=== PATIENT | female | born 1990 | race Caucasian/White ===

== ENCOUNTER 2018-07-02 15:58 | Outpatient (REF) | payer BC, SELFPAY ==
[2018-07-02 20:36] LABS: Bilirubin Negative (Negative); Blood Trace-intact (Negative); Clarity Sl Cloudy; Glucose Negative (Negative); Ketones Negative (Negative); Leukocyte Esterase Negative (Negative); Nitrite Negative (Negative); Specific Gravity >= 1.030 (1.005-1.025); Urobilinogen 0.2 EU/dL (Up TO 0.2)
[2018-07-02 20:50] LABS: Bacteria Many HPF (Negative); C & S Indicated? No/Sq. Contamination; Casts Negative LPF (Negative); Crystals Negative HPF (Negative); Epithelial Cells Many HPF (Negative); Mucus Negative (Negative); RBC 0-2 (0-2); WBC 0-2 HPF (0-5)
[2018-07-05 12:08] LABS: HIV-1/2 Ag & Ab Screen Negative (NEGAT)
[2018-07-05 14:10] LABS: Syphilis Serology (RPR) Negative (Negative)
== END 2018-07-02 16:18 ==
LOC: NCHCN 15:58
PROVIDERS: PCP Nurse Practitioner; Visit Provider Nurse Practitioner
DX: R30.0 Dysuria (principal); Z72.51 High risk heterosexual behavior; Z11.4 Encounter for screening for human immunodeficiency virus [HIV]; Z11.3 Encounter for screening for infections with a predominantly sexual mode of transmission
CPT/HCPCS: 87389; 81003; 81015; 86592

== ENCOUNTER 2019-11-10 18:00 | Outpatient (REF) | payer BC, SELFPAY ==
[2019-11-14 14:37] LABS: Chlamydia Result Negative (Negative); GC Result Negative (Negative)
== END 2019-11-10 18:20 ==
LOC: NCHCN 18:00
PROVIDERS: PCP Nurse Practitioner; Visit Provider Nurse Practitioner Family
DX: Z11.3 Encounter for screening for infections with a predominantly sexual mode of transmission (principal)
CPT/HCPCS: 87491; 87591

== ENCOUNTER 2019-12-08 09:50 | Outpatient (CLI) | payer BC, SELFPAY | END 2019-12-08 10:10 | PROVIDERS: PCP Nurse Practitioner; Visit Provider Surgery | DX: Z01.818 Encounter for other preprocedural examination (principal) ==

== ENCOUNTER 2019-12-09 09:37 | Day surgery (SDC) | payer BC, SELFPAY ==
[2019-12-09] VITALS (8 sets, daily range): BP systolic 108–166; BP diastolic 65–96; PULSE 74–88; RESP 16–28; TEMP 36.4–36.7; O2SAT 92–100
[2019-12-09] MEDS: Lactated Ringers 1,000 ML 80 ML IV ×2 (10:25→12:16)
--- NOTE | 2019-12-09 10:29 | W.PM.DSUDISC ---
Discharge Plan Disposition Patient Disposition: HOME Condition: Good Discharge Details Reason For Visit: EGD, Colonoscopy Attending Provider: Katy Ramirez Primary Care Provider: Ailyn Shane Home Meds and New Rx's Prescriptions: Continued dextroamphetamine-amphetamine [Adderall XR] 30 mg capsule,extended release 24hr 30 mg PO DAILY RF: 0 venlafaxine 37.5 mg capsule,extended release 24hr 37.5 mg PO HS RF: 0 acetaminophen [Tylenol Extra Strength] 500 mg tablet 500 mg PO Q6H PRNRF: 0 naproxen sodium [Aleve] 220 mg capsule 660 mg PO BID PRNRF: 0 ibuprofen 200 mg tablet 800 mg PO Q6H PRNRF: 0 etonogestrel-ethinyl estradiol [NuvaRing] 0.12-0.015 mg/24 hr ring 1 vag ring VG Q4W Qty: 3 RF: 0 loperamide [Imodium A-D] 2 mg capsule 2 mg PO Q4H RF: 0 pantoprazole 40 mg tablet,delayed release (DR/EC) 80 mg PO DAILY RF: 0 ondansetron 4 MG tablet,disintegrating 4 mg PO PRN PRNRF: 0 Discharge Instructions Additional Instructions: Findings: Your EGD showed mild gastritis. Routine biopsies were done. My office will contact you with results. Avoid NSAIDS if possible and alcohol. Your colonoscopy appeared normal. Random biopsies were done to rule out microscopic colitis. Follow up: Further treatment will be based on biopsy results. Please call if you develop: fevers >101.5 Nausea or Vomiting Abdominal pain that is not transient DAY SURGERY UNIT POST COLONOSCOPY INSTRUCTIONS 1. Because there will be medication in your system for the next 24 hours, you may feel a little sleepy. Your coordination will be affected. Therefore: a. Do not drive or operate dangerous equipment for 24 hours. b. Do not drink alcohol beverages for 24 hours (not even beer). c. Plan to go home and rest for the day. 2. Generally there are no restrictions on your activity after a day or so has gone by, but you may feel a bit fatigued for a few days. 3 After you arrive home you may have a light meal and return to a normal diet as you can tolerate it without feeling sick to your stomach. 4. After surgery, you may feel pain or discomfort. This should be only transient, but if it persists please contact your doctor. 5. If there are any questions regarding the findings of your procedure, please feel free to contact your doctor. 6. If you are unable to contact your doctor with a problem, contact the hospital at [phone]. 7. Continue all your regular medications unless directed otherwise. I understand the above instructions and have no questions. Signature of Patient or Responsible Adult Escort Date/Time Name of Responsible Adult Escort Signature of Nurse Date/Time Activity:: Activity as Tolerated Diet:: As Tolerated Discharge Orders Discharge Orders: Discharge Order (Routine); Ordered 12/09/19 Ordered By: Katy Ramirez DS: Diagnosis Discharge Diagnosis (1) Gastritis: Status: Acute (2) Normal colonoscopy: Status: Acute
--- NOTE | 2019-12-09 11:31 | BOWEL_PTH ---
PATIENT: Maggy Castillo LOC: [facility] U#:[id number] AGE/SX: 29/F ROOM: RE12/09/[address]: Katy Ramirez MD : 1990 BED: DIS: 12/09/2019 SPEC #: [id number] RECD: 12/09/19 12:56 STATUS: ROBBY REQ #: [id number] KAILASH: 12/09/19 11:[address]: Katy Ramirez DEPT: Surgical Specimen RECD BY: Lizeth Whelan ENTERED: 12/09/19 12:57 SP TYPE: Bowel OTHR DR: Ailyn Shane Tissues: 1 - BIOPSY BOWEL 2 - STOMACH BIOPSY 3 - BIOPSY BOWEL Procedures: GROSS AND MICRO LEVEL 4 Comments: [id number]
--- NOTE | 2019-12-09 13:10 | ENDO_ITS ---
REPORT OF OPERATIVE PROCEDURE DATE OF PROCEDURE December 09, 2019 PREOPERATIVE DIAGNOSES 1. Blood in stool. 2. Right upper quadrant pain. 3. History of gastric ulcer. POSTOPERATIVE DIAGNOSES 1. Mild gastritis. 2. Normal colon. PROCEDURES 1. EGD with duodenal and gastric biopsies. 2. Colonoscopy with random biopsies. SURGEON Katy Ramirez M.D. ANESTHESIA General endotracheal. INDICATIONS This is a 29-year-old woman who had an episode of fairly dark blood in her stool. She also had some g eneralized abdominal pain that on the day of admission was more in the right upper quadrant. The neisha ent had an EGD in 2018 that showed gastritis along with a shallow gastric ulcer. She has recently bee n taking prednisone for carpal tunnel syndrome and also takes Aleve several times a week for headache s. She complains of chronic loose stools and take Imodium as needed. Recent hemoglobin was 13.5. The re is no family history of colon cancer or inflammatory bowel disease. PROCEDURE DESCRIPTION The patient was placed supine on the operating table and after induction of general anesthetic, inclu ding endotracheal intubation, she as carefully positioned onto her left side. The scope was advanced into her esophagus under direct visualization and down into the stomach and duodenum. There was no du odenitis or ulcers noted. Biopsies were taken from the second portion to evaluate for celiac disease. The stomach itself showed some mild gastritis. Biopsies were taken from the gastric body. Retroflexe d view of the fundus and lesser curvature showed no other abnormalities. The GE junction showed no ma sses, James's, inflammation or strictures. The air was suctioned from the stomach and the scope wi thdrawn with no other esophageal lesions found. Digital rectal examination revealed no abnormalities. The scope was advanced to the cecum without dif ficulty. The ileocecal valve and appendiceal orifice were clearly identified. Her prep was adequate. The scope was slowly withdrawn with no visible abnormalities seen within the ascending, transverse, descending, sigmoid colon or rectum including on retroflexed view. Random biopsies were performed thr oughout the colon to evaluate for possible microscopic colitis. She tolerated the procedure well and was stable to Recovery. Further treatment will be based on biopsy results. My office will contact her when available.
== END 2019-12-09 14:15 | disposition home or self-care (01) ==
PROVIDERS: PCP Family Medicine; Visit Provider Surgery
PROC: (CPT 45380; principal; 2019-12-09 10:15)
DX: K92.1 Melena (principal); R10.11 Right upper quadrant pain; Z87.19 Personal history of other diseases of the digestive system; K31.89 Other diseases of stomach and duodenum; K21.9 Gastro-esophageal reflux disease without esophagitis; G47.33 Obstructive sleep apnea (adult) (pediatric)
CPT/HCPCS: 45380; 43239; 88305; J2001; J2405; J2704

== ENCOUNTER 2020-02-17 09:04 | Outpatient (CLI) | payer BC, SELFPAY ==
[2020-02-20 15:11] LABS: COVID-19 RT-PCR UVMMC Result Negative (Negative)
== END 2020-02-17 09:24 ==
PROVIDERS: PCP Family Medicine; Visit Provider Nurse Practitioner Family
DX: Z11.59 Encounter for screening for other viral diseases (principal)
CPT/HCPCS: U0003

== ENCOUNTER 2020-03-22 13:08 | Outpatient (REF) | payer BC, SELFPAY ==
[2020-03-22 18:15] LABS: Abs Immature Grans 0.01 k/cumm (0.0-0.09); Absolute Basophil Count 0.01 k/cumm (0.0-0.2); Absolute Eosinophil Count 0.08 k/cumm (0.0-0.7); Absolute Lymphocyte Count 3.07 k/cumm (1.2-3.4); Absolute Monocyte Count 0.52 k/cumm (0.11-0.7); Absolute Neutrophil Count 4.05 k/cumm (1.2-6.7); Basophils % 0.1; HCT 39.9 % (36.0-46.0); HGB 13.6 g/dL (12.0-15.5); Immature Grans % 0.1 %; Lymphocytes % 39.7; Mean Corp. HGB Concentration 34.1 g/dL (32.0-36.0); Mean Corpuscular Hemoglobin 29.4 pg (27.0-33.0); Mean Corpuscular Volume 86.4 fL (80-95); Mean Platelet Volume 9.6 fL (8.0-11.0); Monocytes % 6.7; Neutrophils % 52.4; Platelet Count 303 x1000/uL (130-400); RBC 4.62 m/cumm (4.00-5.20); RBC Distribution Width 12.4 % (11.7-14.6); White Blood Cell Count 7.74 k/cumm (4.4-10.8)
[2020-03-22 18:21] LABS: Bilirubin Negative (Negative); Blood Negative (Negative); Clarity Clear (Clear); Glucose Negative (Negative); Ketones Negative (Negative); Leukocyte Esterase Negative (Negative); Nitrite Negative (Negative); Specific Gravity >= 1.030 (1.005-1.025); Urobilinogen 0.2 EU/dL (Up TO 0.2)
[2020-03-22 19:00] LABS: Bacteria Many HPF (Negative); C & S Indicated? No/Sq. Contamination; Casts Negative LPF (Negative); Crystals Many Amorphous HPF (Negative); Epithelial Cells Many HPF (Negative); Mucus Moderate (Negative); Other Cells Negative (Negative); RBC 0-2 HPF (0-2); WBC 0-2 HPF (0-5)
[2020-03-23 10:56] LABS: COVID-19 RT-PCR UVMMC Result Negative (Negative)
== END 2020-03-22 13:28 ==
LOC: NCHCN 13:08
PROVIDERS: PCP Family Medicine; Visit Provider Nurse Practitioner Family
DX: R50.9 Fever, unspecified (principal); R11.0 Nausea; Z11.59 Encounter for screening for other viral diseases
CPT/HCPCS: U0003; 81003; 81015; 85025

== ENCOUNTER 2020-03-23 13:06 | Outpatient (REF) | payer BC, SELFPAY ==
[2020-03-23 17:04] LABS: ALT 24 U/L (14-59); AST 19 U/L (15-37); Albumin 3.5 g/dL (3.4-5.0); Alkaline Phosphatase 52 U/L (46-116); Anion Gap 10.7 mmol/L (3-11); BUN 9 mg/dL (7-18); Bilirubin, Total 0.3 mg/dL (0.2-1.0); CO2 25.3 mmol/L (21.0-32.0); CREATININE 0.95 mg/dL (0.55-1.02); Chloride 101 mmol/L (98-107); Glucose 97 mg/dL (74-106); Potassium 4.5 mmol/L (3.5-5.1); Sodium 137 mmol/L (136-145); Total Protein 6.9 g/dL (6.4-8.2)
== END 2020-03-23 13:26 ==
LOC: NCHCN 13:06
PROVIDERS: PCP Family Medicine; Visit Provider Nurse Practitioner Family
DX: R50.9 Fever, unspecified (principal); R11.0 Nausea
CPT/HCPCS: 80053; 84443

== ENCOUNTER 2020-04-04 17:31 | Outpatient (REF) | payer BC, SELFPAY ==
--- NOTE | 2020-04-04 16:30 | PAPFT_PTH ---
PATIENT: Maggy Castillo LOC: [facility] U#:[id number] AGE/SX: 30/F ROOM: RE04/04/[address]: Callie Tan : 1990 BED: DIS: 04/04/2020 SPEC #: [id number] RECD: 04/04/20 17:35 STATUS: ROBBY REQ #: [id number] KAILASH: 04/04/20 16:[address]: Callie Tan DEPT: [facility] Cytology RECD BY: Lizeth Whelan ENTERED: 04/04/20 17:36 SP TYPE: PAPFT OTHR DR: Ailyn Shane Tissues: 1 - CX/ENDOCX FOR PAP SMEARS Procedures: PAP THIN PREP/UVM Screening Comments: [id number]
[2020-04-06 13:55] LABS: Chlamydia Result Negative (Negative); GC Result Negative (Negative)
== END 2020-04-04 17:51 ==
LOC: LBN 17:31
PROVIDERS: PCP Family Medicine; Visit Provider Obstetrics & Gynecology Gynecology
DX: Z11.3 Encounter for screening for infections with a predominantly sexual mode of transmission (principal); Z12.4 Encounter for screening for malignant neoplasm of cervix
CPT/HCPCS: 87491; 87591; 88142

== ENCOUNTER 2020-06-29 14:14 | Outpatient (CLI) | payer BC, SELFPAY ==
[2020-06-29 15:00] LABS: HCT 41.4 % (36.0-46.0); HGB 13.5 g/dL (11.2-15.7); MCH 28.2 pg (27.0-33.0); MCHC 32.6 % (32.0-36.0); MCV 86.6 fL (80-95); MPV 9.5 fL (8.0-11.0); Platelet Count 293 10^3/uL (130-400); RBC 4.78 10^6/uL (3.93-5.22); RDW 12.4 % (11.7-14.6); RDW-SD 39.1 fL; WBC 8.44 10^3/uL (4.4-10.8)
[2020-07-04 08:18] LABS: Campylobacter PCR Negative (Negative); Salmonella PCR Negative (Negative); Shiga Toxin PCR Negative (Negative); Shigella/Enteroinvasive Ecoli Negative (Negative)
== END 2020-06-29 14:34 ==
PROVIDERS: PCP Nurse Practitioner Family; Visit Provider Nurse Practitioner Family
DX: R19.7 Diarrhea, unspecified (principal)
CPT/HCPCS: 36415; 85027; 87505; 87177

== ENCOUNTER 2020-06-30 09:53 | Emergency (ER) | payer BC, SELFPAY ==
[2020-06-30 10:01] VITALS: BP 141/93; PULSE 92; RESP 16; TEMP 36.1; O2SAT 97
--- NOTE | 2020-06-30 10:14 | ED.GENADUL_ITS ---
Discharge Plan Disposition Patient Disposition: HOME Condition: Stable Discharge Details Clinical Impression: Diarrhea, Dehydration Primary Care Provider: Malathi Krueger ED Provider: Mina Rodgers Home Meds and New Rx's Prescriptions: New vancomycin 125 mg capsule 125 mg PO QID 10 Days Qty: 40 RF: 0 Continued venlafaxine 37.5 mg capsule,extended release 24hr 37.5 mg PO HS RF: 0 doxepin 10 mg capsule 10 mg PO QHS RF: 0 acetaminophen [Tylenol Extra Strength] 500 mg tablet 500 mg PO Q6H PRNRF: 0 naproxen sodium [Aleve] 220 mg capsule 660 mg PO BID PRNRF: 0 ibuprofen 200 mg tablet 800 mg PO Q6H PRNRF: 0 loperamide [Imodium A-D] 2 mg capsule 2 mg PO Q4H RF: 0 pantoprazole 40 mg tablet,delayed release (DR/EC) 80 mg PO DAILY RF: 0 etonogestrel-ethinyl estradiol [NuvaRing] 0.12-0.015 mg/24 hr ring 1 vag ring VG Q4W Qty: 3 RF: 4 ondansetron 4 MG tablet,disintegrating 4 mg PO PRN PRNRF: 0 Discharge Instructions Instructions: Acute Diarrhea (ED) Additional Instructions: your c diff test came back as indeterminate so a confirmation test was sent out to an outside lab follow up with your primary care provider within 1 week if not improving if you feel more ill, have severe pain or persistent vomit return to the emergency department Stand Alone Forms: Work Release Medical Decision Making 30 yo female comes in with 2 days of watery yellow stools without fevers denies recent antibiotics and denies recent travel. She had stool samples collected by pcp yesterday per patient and are pending at this time. She came in today be cause she feels dehydrated, has nausea and mild frontal headache, no vomit, no abdominal pain, no chest pain or dyspnea. Arrives hd stable, does have dry mucous membranes, no abdominal tenderness on exam. Suspect gastroenteritis vs food related illness. Given lack of any abdominal tenderness doubt surgical pathology such as cholecystitis, sbo or appendicitis and do not feel ct imaging at this time indicated. Will evaluate for electrolyte abnormalities, c diff and reassess after IVF and zofran/toradol. Headache is very mild suspect this is due to dehydration, not the worst of her life and did not start suddenly so doubt sah and no meningimsus so doubt mica miner blasting infection blood work unremarkable and c diff indeterminate, given her symptoms of diarrhea while confirmation testing will start oral vanco. She is stable for d/c, return precautions given Differential Diagnosis Differential Diagnosis: food illness, gastroenteritis Lab Data Lab results reviewed: Yes I reviewed the patient's lab results. HPI General Mode of arrival: ambulatory . Date/Time Provider Initiated Documentation: 06/30/20 09:54 . Limitations to Documentation: no limitations . Information obtained by: patient . History of Present Illness 30 year old F presents to the emergency department with the chief complaint of diarrhea, described as moderate, Patient started experiencing this day(s) (2) and it has been constant. No relieving factors improve symptom(s), No exacerbating factors reported . Related Data Home Medications Medication Instructions Recorded Confirmed ondansetron 4 mg PO PRN PRN 11/28/16 06/30/20 acetaminophen 500 mg tablet 500 mg PO Q6H PRN 10/14/18 06/30/20 venlafaxine 37.5 mg 37.5 mg PO HS 10/26/19 06/30/20 capsule,extended release 24 hr loperamide 2 mg capsule 2 mg PO Q4H 12/07/19 06/30/20 pantoprazole 40 mg tablet,delayed 80 mg PO DAILY tab 12/07/19 06/30/20 release ibuprofen 200 mg tablet 800 mg PO Q6H PRN tab 12/08/19 06/30/20 naproxen sodium 220 mg capsule 660 mg PO BID PRN 12/08/19 06/30/20 etonogestrel 0.12 mg-ethinyl 1 vag ring VG Q4W #3 each 12/30/19 06/30/20 estradiol 0.015 mg/24 hr vaginal ring doxepin 10 mg capsule 10 mg PO QHS 04/04/20 06/30/20 vancomycin 125 mg PO QID 10 Days #40 cap 06/30/20 Previous Rx's Medication Instructions Recorded etonogestrel 0.12 mg-ethinyl 1 vag ring VG Q4W #3 each 12/30/19 estradiol 0.015 mg/24 hr vaginal ring vancomycin 125 mg PO QID 10 Days #40 cap 06/30/20 Allergies Allergy/AdvReac Type Severity Reaction Status Date / Time aripiprazole [From Abilify] AdvReac Intermediate Other (See Verified 06/30/20 10:05 Comment) General Stated Complaint: Nausea/Vomit/Diar NIXON: 3 Review of Systems All systems reviewed & are unremarkable except as noted in HPI and below Constitutional Constitutional: Denies chills and Denies fever(s) Cardiovascular Cardiovascular: Denies chest pain and Denies dyspnea Respiratory Respiratory: Denies cough and Denies dyspnea Gastrointestinal Gastrointestinal: Denies vomiting Musculoskeletal Musculoskeletal: Denies joint swelling [facility] Medical History (Updated 06/30/20 @ 11:43 by Mina Rodgers MD) Abdominal pain ADHD On meds Anxiety Back pain Bloody stool BMI 50.0-59.9, adult BV (bacterial vaginosis) (10/23/17) Change in bowel habits Depression Not responsive to medications. Had a series of IV infusions of ketamine with improvement of symptoms. Fatty infiltration of liver Incidental finding at time of pelvic ultrasound on 09/2017. Fatty infiltration of liver (10/23/17) Incidental finding the time of pelvic ultrasound 09/2017. Gastric ulcer GERD (gastroesophageal reflux disease) Hearing impairment Patient denies having hearing loss. Hx of sleep apnea does not use device, scheduled for new sleep study Hyperlipidemia Irregular periods Left ear pain Left knee pain Migraine Nausea Obesity FERNIE (obstructive sleep apnea) Uses contraception Initially OCPs. w/o exacerbations of headaches. Then Mirena IUD - removed 2/2 irreg bleeding then ParaGard which caused cramping followed by a 10/31/17 Nexplanon inserted. 07/2018 removed 2/2 irreg bleeding. 12/24/2018. restarted OCPs. Switched to NuvaRing with good compliance. Vaginal candidiasis Surgical History EGD - MAC (03/11/18) Hx of wisdom tooth extraction Family History Mother Depression Other Migraines Neoplasm Social History Smoking/Tobacco Use Status: Never Alcohol Intake: current Alcohol Intake frequency: holidays/special occasions only Alcohol type: hard liquor Drug use: Rarely Substance use type: marijuana Details: Pt. uses vap THC pen Current gender identity: female Do you feel safe at home: Yes Additional Social history: not in current relationship Exam Const General: no acute distress Orientation: alert HENMT Head: normal to inspection Ears: external ears normal General nose exam: external nose normal Mouth: moist mucous membranes Eyes General: appearance normal, both eyes and all related structures Neck Neck: normal visual inspection Resp Effort & Inspection: normal respiratory effort and able to speak in complete sentences Cardio Rate: regular rate GI Palpation: soft and nontender Skin General skin exam: no rashes or lesions noted Neuro General: patient alert and patient oriented x3 Extrem General: normal to inspection Psych Mental Status: mental status grossly normal Course Vital Signs Vital signs: Vital Signs Temperature 36.1 C L 06/30/20 10:01 Pulse 92 H 06/30/20 10:01 Respiratory Rate 16 06/30/20 10:01 Blood Pressure 141/93 H 06/30/20 10:01 Pulse Oximetry 97 06/30/20 10:01 Temperature 36.1 C L 06/30/20 10:01 Temperature Source Skin 06/30/20 10:01 Pulse 92 H 06/30/20 10:01 Respiratory Rate 16 06/30/20 10:01 Respiratory Effort Non-Labored 06/30/20 10:01 Blood Pressure 141/93 H 06/30/20 10:01 Blood Pressure Position Sitting 06/30/20 10:01 Pulse Oximetry 97 06/30/20 10:01 Oxygen Delivery Method Room Air 06/30/20 10:01 Oxygen Flow Rate 0 06/30/20 10:01 Pain Level 2 06/30/20 10:01
[2020-06-30 10:43] LABS: BE (Venous) 0 mmol/L (-2-3); HCO3 (Venous) 25 mmol/L (23-28); O2 Sat (Venous) 69 %; TCO2 (Venous) 23 mmol/L (24-29); pCO2 (Venous) 45 mmHg (41-51); pH (Venous) 7.36 (7.31-7.41); pO2 (Venous) 37 mmHg
[2020-06-30 10:47] LABS: Abs Immature Grans 0.01 10^3/uL (0.0-0.06); Absolute Basophil Count 0.02 10^3/uL (0.0-0.2); Absolute Eosinophil Count 0.21 10^3/uL (0.0-0.7); Absolute Lymphocyte Count 1.79 10^3/uL (1.2-3.4); Absolute Monocyte Count 0.44 10^3/uL (0.1-0.8); Absolute Neutrophil Count 4.36 10^3/uL (1.2-6.7); Basophils % 0.3; Eosinophils % 3.1; HCT 42.7 % (36.0-46.0); HGB 14.2 g/dL (11.2-15.7); Immature Grans % 0.1; Lymphocytes % 26.2; MCH 28.6 pg (27.0-33.0); MCHC 33.3 % (32.0-36.0); MCV 86.1 fL (80-95); MPV 9.6 fL (8.0-11.0); Monocytes % 6.4; Neutrophils % 63.9; Nucleated RBC 0 %; Platelet Count 299 10^3/uL (130-400); RBC 4.96 10^6/uL (3.93-5.22); RDW 12.3 % (11.7-14.6); RDW-SD 38.3 fL; WBC 6.83 10^3/uL (4.4-10.8)
[2020-06-30 10:50] LABS: Lactate 1.1 mmol/L (0.6-1.4)
[2020-06-30] MEDS: Normal Saline 1,000 ML 1000 ML IV (10:52)
[2020-06-30] MEDS: Ondansetron 4 MG/2 ML VIAL IVP (10:54)
[2020-06-30] MEDS: Ketorolac 15 MG/ML VIAL IVP (10:54)
[2020-06-30 10:56] LABS: Bilirubin Small (Negative); Blood Negative (Negative); Clarity Cloudy (Clear); Glucose Negative (Negative); Ketones Trace mg/dL (Negative); Leukocyte Esterase Negative (Negative); Nitrite Negative (Negative); Specific Gravity >= 1.030 (1.005-1.025); Urobilinogen 0.2 EU/dL (Up TO 0.2)
[2020-06-30 11:11] LABS: ALT 54 U/L (14-59); AST 36 U/L (15-37); Albumin 3.5 g/dL (3.4-5.0); Alkaline Phosphatase 49 U/L (46-116); BUN 8 mg/dL (7-18); Bilirubin, Direct 0.07 mg/dL (0.00-0.20); Bilirubin, Total 0.4 mg/dL (0.2-1.0); Calcium 8.7 mg/dL (8.5-10.1); Chloride 104 mmol/L (98-107); Glucose 84 mg/dL (74-106); Lipase 90 U/L (73-393); Magnesium 1.9 mg/dL (1.8-2.4); Potassium 3.4 mmol/L (3.5-5.1); Sodium 139 mmol/L (136-145); Total Protein 6.8 g/dL (6.4-8.2)
[2020-06-30 11:14] LABS: Bacteria Many HPF (Negative); C & S Indicated? No/Sq. Contamination; Crystals Moderate Amorphous HPF (Negative); Epithelial Cells Many HPF (Negative); Mucus Heavy (Negative)
[2020-06-30 12:16] VITALS: BP 135/79; PULSE 88; RESP 16; TEMP 36.1; O2SAT 97
[2020-06-30] MEDS: Vancomycin 125 MG CAP PO (12:17)
[2020-07-04 17:55] LABS: C Diff PCR Positive (Negative)
--- NOTE | 2020-07-04 17:58 | NUR.NOTE ---
Nursing Note: Patient called asking for results of C diff testing. Call sent to Dr. Field to answer patients questions.
== END 2020-06-30 12:21 | disposition home or self-care (01) ==
PROVIDERS: Emergency Provider Emergency Medicine; PCP Nurse Practitioner Family
DX: R19.7 Diarrhea, unspecified (principal); E86.0 Dehydration; R11.0 Nausea; R51 Headache
CPT/HCPCS: 36415; 80053; 81025; 82805; 83690; 87493; 96361; 96374; 96375; 99284; 81003; 81015; 82248; 83605; 83735; 84703; 85025; 87324; J1885; J2405

== ENCOUNTER 2021-04-22 09:54 | Outpatient (REF) | payer OTHER, SELFPAY ==
[2021-04-23 14:15] LABS: COVID-19 RT-PCR UVMMC Result Negative (Negative)
== END 2021-04-22 09:55 | disposition home or self-care (01) ==
LOC: LBN 09:54
PROVIDERS: PCP Nurse Practitioner Family; Visit Provider Nurse Practitioner Family
DX: Z20.822 Contact with and (suspected) exposure to COVID-19 (principal); J06.9 Acute upper respiratory infection, unspecified
CPT/HCPCS: U0003

== ENCOUNTER 2021-08-07 11:53 | Outpatient (REF) | payer OTHER, SELFPAY ==
[2021-08-08 15:25] LABS: Chlamydia Result Negative (Negative); GC Result Negative (Negative)
== END 2021-08-07 11:54 | disposition home or self-care (01) ==
LOC: LBN 11:53
PROVIDERS: PCP Nurse Practitioner Family; Visit Provider Obstetrics & Gynecology Gynecology
DX: N91.2 Amenorrhea, unspecified (principal); Z11.3 Encounter for screening for infections with a predominantly sexual mode of transmission
CPT/HCPCS: 87491; 87591

== ENCOUNTER 2021-08-08 02:10 | Outpatient (CLI) | payer OTHER, SELFPAY ==
[2021-08-08 08:57] LABS: Hemoglobin A1C 5.8 % (<5.7)
[2021-08-08 09:36] LABS: ALT 51 U/L (14-59); AST 21 U/L (15-37); Albumin 3.7 g/dL (3.4-5.0); Alkaline Phosphatase 51 U/L (46-116); Anion Gap 9.4 mmol/L (3-11); BUN 11 mg/dL (7-18); Bilirubin, Total 0.3 mg/dL (0.2-1.0); CO2 26.6 mmol/L (21.0-32.0); CREATININE 0.8 mg/dL (0.55-1.02); Calcium 9.2 mg/dL (8.5-10.1); Calculated LDL 180 mg/dL (<100); Chloride 103 mmol/L (98-107); Cholesterol 262 mg/dL (<200); Glucose 105 mg/dL (74-106); HDL Cholesterol 54 mg/dL (40-60); Potassium 4.6 mmol/L (3.5-5.1); Sodium 139 mmol/L (136-145); TSH (W/Ref FT4) 1.51 uIU/mL (0.36-3.74); Total Protein 6.8 g/dL (6.4-8.2); Triglyceride 140 mg/dL (<150)
[2021-08-08 09:37] LABS: HCG Quant, Pregnancy < 1 mIU/mL (1-3)
[2021-08-08 17:36] LABS: Estradiol 93 pg/mL (See Note)
[2021-08-08 18:24] LABS: LH 17.4 mIU/mL (See Note)
[2021-08-09 08:51] LABS: DHEA Sulfate 397 ug/dL (96-512)
[2021-08-14 09:40] LABS: Testosterone, Free 8.8
[2021-08-14 09:41] LABS: Testosterone, Total 39 ng/dL
== END 2021-08-08 02:11 | disposition home or self-care (01) ==
PROVIDERS: PCP Nurse Practitioner Family; Visit Provider Obstetrics & Gynecology Gynecology
DX: N91.2 Amenorrhea, unspecified (principal); K76.0 Fatty (change of) liver, not elsewhere classified
CPT/HCPCS: 36415; 80053; 80061; 82627; 84402; 84403; 82670; 83002; 83036; 84443; 84702